=== PATIENT | male | born 1965 | race African-American/Black ===

== ENCOUNTER 2018-05-16 19:11 | Emergency (ER) | payer OTHER ==
[~2018-05-16] VITALS: Ht 170.2 cm; Wt 83.0 kg
[2018-05-16 19:30] VITALS: BP 122/69
[2018-05-16] MEDS ORDERED: Methocarbamol 500mg tab ORAL ONE (20:00)
[2018-05-16] MEDS ORDERED: LIDOCAINE700 M1 TP (20:04)
[2018-05-16] MEDS ORDERED: ROBAXIN500 MG PO (20:04)
[2018-05-16] MEDS ORDERED: IBUPROFEN600 MG ORAL (20:04)
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
[2018-05-16 20:17] VITALS: BP 122/69
== END 2018-05-16 20:30 | disposition home or self-care (01) ==
LOC: EMR 20:20
DX: M25.512 Pain in left shoulder (principal); M54.2 Cervicalgia; V43.52XA Car driver injured in collision with other type car in traffic accident, initial encounter; Y92.410 Unspecified street and highway as the place of occurrence of the external cause
CPT/HCPCS: 99283

== ENCOUNTER 2020-07-25 13:26 | Emergency (ER) | payer BC, OTHER ==
[~2020-07-25] VITALS: Ht 170.2 cm; Wt 97.5 kg
[~2020-07-25 13:26] MED LIST: IBUPROFEN600 MG ORAL; LIDOCAINE700 M1 TP; ROBAXIN500 MG PO
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
[2020-07-25 13:55] VITALS: BP 125/84
[2020-07-25] MEDS ORDERED: Ketorolac 30mg Inj IM ONE (14:00)
[2020-07-25] MEDS ORDERED: Methocarbamol 750mg tab ORAL ONE (14:00)
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
[2020-07-25] MEDS ORDERED: LIDODERM700 M1 TOPIC (16:31)
[2020-07-25] MEDS ORDERED: ROBAXIN-500MG ORAL (16:31)
[2020-07-25] MEDS ORDERED: IBUPROFEN600 M1 ORAL (16:31)
[2020-07-25 16:55] VITALS: BP 125/84
--- NOTE | 2020-07-25 16:56 | NUR ---
ED Nurse Note: Pt cleared by health care Provider for discharge. DC instructions/prescription was given and explained to pt and verbalized understanding of teachings. All medical deviecs such as ID band removed. Pt is AAO x4, ambulatory and left with all personal belongings.
== END 2020-07-25 16:56 | disposition home or self-care (01) ==
LOC: EMR 14:00
DX: S16.1XXA Strain of muscle, fascia and tendon at neck level, initial encounter (principal); S39.012A Strain of muscle, fascia and tendon of lower back, initial encounter; S20.211A Contusion of right front wall of thorax, initial encounter; V43.52XA Car driver injured in collision with other type car in traffic accident, initial encounter; Y92.410 Unspecified street and highway as the place of occurrence of the external cause; J44.9 Chronic obstructive pulmonary disease, unspecified; K57.90 Diverticulosis of intestine, part unspecified, without perforation or abscess without bleeding; M47.814 Spondylosis without myelopathy or radiculopathy, thoracic region
CPT/HCPCS: 71250; 72125; 72131; 74176; 96372; 99284; J1885